=== PATIENT | male | born 1960 | race Caucasian/White ===

== ENCOUNTER 2025-05-27 07:53 | Day surgery (SDC) | payer MEDICARE, BC ==
[2025-05-26 15:27] LABS: MEAN PLATELET VOLUME 8.5 FL (7.4-10.4); PRE OP HEMATOCRIT 41.9 % (42.0-52.0); PRE OP HEMOGLOBIN 14.4 g/dL (14.0-17.9); PRE OP PLATELET COUNT 264 X10'3 (140-440); PRE OP WHITE BLOOD COUNT 6.7 10'3 (4.8-10.8); RED CELL DISTRIBUTION WIDTH 13.3 % (11.5-14.5)
[2025-05-26 15:39] LABS: CREATININE 1.05 MG/DL (0.60-1.10); PRE OP ALT 26 U/L (30-65); PRE OP ANION GAP 4 (8-16); PRE OP AST 29 U/L (10-37); PRE OP BILIRUB, TOTAL 0.5 MG/DL (0.0-1.0); PRE OP GLUCOSE 96 MG/DL (70-104); PRE OP POTASSIUM 4.2 MMOL/L (3.4-5.1); PRE OP SODIUM 141 MMOL/L (135-145); TOTAL CARBON DIOXIDE 30.6 MMOL/L (24-32); eGFR 71 ML/MIN
[~2025-05-27] VITALS: Ht 185.4 cm; Wt 100.5 kg
[2025-05-27] MEDS: ceFAZolin 2gm/dext,iso 50mL 50 ML IV ONE (05:30)
[~2025-05-27 07:53] MED LIST: AMLO2.5T5 PO
[2025-05-27 08:00] VITALS: BP 175/100; PULSE 70; RESP 16; TEMP 97.6; O2SAT 98
[2025-05-27] MEDS ORDERED: LIDOcaine 1% 30ml preserv. free vial ONE (08:23)
[2025-05-27] MEDS ORDERED: BUPIVAcaine 2.5mg/ml inj 50ml vial (contains preservative) ONE (08:23)
[2025-05-27] MEDS: ringers solution, lacted 1,000 ML IV SCH ×2 (08:37→10:55)
[2025-05-27] MEDS ORDERED: ondansetron/PF 4mg/2ml inj ONE (09:57)
[2025-05-27] MEDS ORDERED: fentaNYL/PF 50MCG/1 ML 2ML syringe ONE (09:57)
[2025-05-27] MEDS ORDERED: propofol inj 20 ML IV ONE (09:57)
[2025-05-27] MEDS ORDERED: desflurane 240ml liquid inh. IH ONE (10:00)
[2025-05-27] MEDS: BUPIVAcaine/PF 2.5 mg/ml (0.25%) 30ml vial IJ ONE (10:18)
[2025-05-27] MEDS: LIDOcaine 1% 30ml preserv. free vial IJ ONE (10:18)
[2025-05-27 10:48] VITALS: BP 178/111; PULSE 60; RESP 16; O2SAT 100
[2025-05-27 10:50] VITALS: BP 173/116; PULSE 50; RESP 9; O2SAT 100
[2025-05-27] MEDS ORDERED: HYDROcodone/acetaminophen 5mg/325mg tablet PO PRN (10:50)
[2025-05-27] MEDS ORDERED: ondansetron/PF 4mg/2ml inj IV PRN (10:55)
[2025-05-27] MEDS ORDERED: enalaprilat 1.25mg/ml 2ml vial IV PRN (10:55)
[2025-05-27] MEDS ORDERED: hydrALAZINE 20mg/ml inj. IV PRN (10:55)
[2025-05-27] MEDS ORDERED: morphine 4 MG/ML inj SYRINge IV PRN (10:55)
[2025-05-27 11:00] VITALS: BP 170/126; PULSE 62; RESP 13; O2SAT 99
--- NOTE | 2025-05-27 11:04 | OPERATIVE REPORT ---
Operative Report Providers to CC CC: RIAZ TEAGUE MD ~ Date of Procedure: May 27, 2025 Pre-Operative Diagnosis: Subcutaneous tumor of the upper back Post-Operative Diagnosis 6 cm subcutaneous tumor of the upper back Procedure Performed Excision of 6 cm subcutaneous tumor of the upper back (CPT: 66146) Surgeon: Riaz Teague MD FACS Cloth Booker None Anesthesiologist: Laron Talavera Type of Anesthesia: General Findings: 6 cm fatty tumor abutting the fascia in the subcutaneous tissue Wound class I Complications None Prosthetics\Implants used: None Estimated Blood Loss: 10 cc Specimen Removed: Subcutaneous tumor of the upper back Description of Procedure: Patient was brought to the operating room and identified by the nursing staff and the attending physician. General anesthesia was induced and the patient was placed in the right lateral decubitus position. There was a visible mass deep to a surgical scar in the upper back near the base of the neck. This area was prepped and draped in the standard sterile fashion. Local anesthetic was infiltrated. Using the scar as an incision guide, incision was made with a scalpel. This was deepened down through the subcutaneous tissue with the electrocautery. There was significant amount of scarring. The dissection was continued down until an encapsulated fatty tumor was encountered. This was in the subcutaneous space but abutting the fascial layer. Portion of the tumor extended through the fascial layer, however, this also could have been just significant scarring from previous surgery. The tumor was excised intact and measured about 2 or 3 x 6 cm in size. Specimen was passed off the field and labeled upper back/nape of neck mass. Wound was irrigated and closed in layers with absorbable suture. Dermabond was applied to the incision. Patient was awakened and taken to the postanesthesia care unit in stable condition. Counts repoted as correct: Yes RIAZ TEAGUE MD May 27, 2025 11:04
[2025-05-27 11:10] VITALS: BP 172/110; PULSE 62; RESP 14; O2SAT 98
[2025-05-27 11:20] VITALS: PULSE 60; RESP 11; O2SAT 98
--- NOTE | 2025-06-03 12:09 | HISTORY AND PHYSICAL ---
History & Physical Providers to CC CC: PARDEEP TEAGUE MD ~ History of Present Illness Reason for Admit\Complaint: Lump on back History of Present Illness This is an interval history and physical exam being dictated in a delayed fashion Patient was seen and examined on May 27 prior to surgery but the note was inadvertently left undissected This is that note: Patient is here today for elective repair of a subcutaneous tumor of the upper back He was seen in the office about five weeks ago and diagnosed with such lesion This is suspected to be a lipoma He denies any change in his past medical history since he was seen that day (please see previous history and physical exam for all pertinent details) He is scheduled for excision of subcutaneous tumor of the back Allergies: Coded Allergies: quinine (Verified Allergy, Severe, CAUSED ITP, 05/26/25) Home Medications Home Medications Active Reported Amlodipine Besylate 2.5 Mg Tablet 1 Tab PO DAILY ROS ROS Reviewed and negative Exam General: 64-year-old male in no acute distress Chest: Lungs clear to auscultation bilaterally Mobile mass in the upper back at the base of the neck, marked with indelible ink Cardiovascular: Regular rate and rhythm without murmurs Problems: (1) Subcutaneous mass of back Assessment & Plan: The risks, benefits, and alternatives to excision of subcutaneous tumor of the back were discussed with the patient. Risks include, but are not limited to, bleeding, infection, recurrence and the need for additional surgical procedures. Patient verbalized understanding and wishes to proceed with surgery. We will do so today as scheduled PARDEEP TEAGUE MD Jun 03, 2025 12:09
== END 2025-05-27 11:38 | disposition home or self-care (01) ==
LOC: PAS 07:53 → EDUNIT# 12:15
PROVIDERS: ATTEND Surgery
DX: D17.0 Benign lipomatous neoplasm of skin and subcutaneous tissue of head, face and neck (principal); I10 Essential (primary) hypertension; R73.09 Other abnormal glucose; Z98.890 Other specified postprocedural states; Z90.81 Acquired absence of spleen; Z82.49 Family history of ischemic heart disease and other diseases of the circulatory system
CPT/HCPCS: 21554; 36415; 80053; 82948; 85025; 88304; A4215; A4618; A7000; J2003; J2405; J2704; J3010; J3490; J7030; J7120; Z7506; Z7512; Z7610